=== PATIENT | female | born 1990 | race American Indian/Alaskan Native ===

== ENCOUNTER 2018-07-02 12:23 | Emergency (ER) | payer OTHER ==
[2018-07-02 12:35] VITALS: BP 113/68
[2018-07-02] MEDS ORDERED: TORADOL IM ONE (14:36)
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
== END 2018-07-02 16:58 | disposition home or self-care (01) ==
LOC: ED 12:23
DX: M54.2 Cervicalgia (principal); J45.909 Unspecified asthma, uncomplicated; V89.2XXA Person injured in unspecified motor-vehicle accident, traffic, initial encounter; Y93.89 Activity, other specified; Y99.8 Other external cause status; Y92.410 Unspecified street and highway as the place of occurrence of the external cause
CPT/HCPCS: 72040; 96372; 99283; J1885